=== PATIENT | male | born 1960 | race Caucasian/White ===

== ENCOUNTER 2025-06-13 08:40 | Inpatient (IN) ==
--- NOTE | 2025-06-13 09:03 | ED.PDOC ---
General HPI ED Provider: Dr. RITCHIE LOW MD Chief Complaint: Stroke Stated Complaint: Patient is a 65-year-old male that reported to the emergency department with left-sided weakness particularly in the left hand. Patient stated this started 2 hours prior to come to the emergency department. Patient stated that prior to that he had normal function in the left hand. Patient stated that he does have a history of TIAs. Patient also has a history of hypertension and current blood pressure reading is 196/103. Patient stated that he moved from [place] and has not been taking his blood pressure medications. Patient stated that there is been no change in his speech. Patient stated that has not had any loss of consciousness, dizziness, or syncope. Patient stated that he has been weak on the left lower extremity as well. Patient stated that has not had any recent falls. Patient denied any facial asymmetry. There was slight slurring of the speech appreciated at bedside. Patient denied any headache, fever, chest pain, shortness of breath, or any other acute symptoms not currently mentioned in his HPI. Patient's vital signs are currently stable. Patient's GCS is 15. Patient's NIH score is 4. Time Seen by Provider: 06/13/25 08:42 Mode of Arrival: Walk-In Information Source: Patient and Family Exam Limitations: No limitations Nursing and Triage Documentation Reviewed and Agree: Yes Opioid Naive vs. Tolerant What is Opioid Naive?: *Opioid Naive implies the patient is not already taking opioids or not chronically receiving opioids on a daily basis. *PRN dosing is not "usually" associated with tolerance. *Patients are at higher risk of over-sedation and aspiration. What is Opioid Tolerant?: *Opioid Tolerance implies less than the expected response to an opioid. *Acquired tolerance is defined by the patient taking 60mg of oral morphine daily (or equianalgesic dose of another opioid) for 1 week or more. *Often associated with chronic pain. *May take more than usual dose to achieve desired pain control. Review of Systems Review Of Systems Constitutional: Reports Weakness Neurological: Reports Weakness (Weakness in the left hand and left lower extremity.) All Other Systems: Reviewed and Negative Physical Exam Physical Exam Appearance: Reports No pain distress and Well-nourished Ill-appearing: None Pain Distress: None Eyes: Reports ASHIA, EOMI and Conjunctiva clear ENT: Reports Ears normal, Nose normal and Oropharynx normal Neck: Supple Respiratory: Reports Airway patent, Breath sounds clear, Breath sounds equal and Respirations nonlabored Cardiovascular: Reports RRR, Pulses normal, No rub and No murmur GI/: Reports Soft, Nontender, No masses, Bowel sounds normal and No Organomegaly Musculoskeletal: Reports ROM intact, Limited strength (Patient's strength in the left hand was a 3 out of 5 compared to right 5 out of 5. Patient strength in the left lower extremity was a 4 out of 5 compared to right 5 out of 5.) and Other (NIH score is 4. Patient left leg drift but does not hit bed. Aphasia is mild to moderate. Left lower limb ataxia noted. Mild to moderate dysarthria slurring but can be understood. ) Skin: Reports Warm, Dry and Normal color Neurological: Reports Sensation intact, Cranial nerves intact, Alert and Oriented Psychiatric: Reports Affect appropriate and Mood appropriate NIH Stroke Scale 1a. Level of Consciousness: 0=Alert and keenly responsive 1b. Level of Consciousness Questions: 0=Answers correctly to two questions 1c. Level of Consciousness Commands: 0=Performs two tasks correctly 2. Best Gaze: 0=Normal 3. Visual: 0=No visual loss 4. Facial Palsy: 0=Normal 5a. Motor Left Arm: 0=No drift,arm holds 90 degrees for 10 sec., leg 30 degrees for 5 sec. 5b. Motor Right Arm: 0=No drift,arm holds 90 degrees for 10 sec., leg 30 degrees for 5 sec. 6a. Motor Left Le=Drifts before 10 seconds arm, 5 seconds leg 6b. Motor Right Le=No drift,arm holds 90 degrees for 10 sec., leg 30 degrees for 5 sec. 7. Limb Ataxia: 1=Present in one limb 8. Sensory: 0=Normal 9. Best Language: 1=Mild to moderate aphasia, can express 10. Dysarthria: 1=Mild to moderate, but can be understood 11. Extincion and Inattention: 0=Normal Stroke Scale Total: 4 Mervat Coma Scale [place] Coma Scale Response Scores: Best Response = 15 Comatose Client = 8 or Less Totally Unresponsive = 3 Physician Progress Note Physician Progress Note: Patient is a 65-year-old male that reported to the emergency department with left-sided weakness particularly in the left hand. Patient stated this started 2 hours prior to come to the emergency department. Patient stated that prior to that he had normal function in the left hand. Patient stated that he does have a history of TIAs. Patient also has a history of hypertension and current blood pressure reading is 196/103. Patient stated that he moved from [place] and has not been taking his blood pressure medications. Patient stated that there is been no change in his speech. Patient stated that has not had any loss of consciousness, dizziness, or syncope. Patient stated that he has been weak on the left lower extremity as well. Patient stated that has not had any recent falls. Patient denied any facial asymmetry. There was slight slurring of the speech appreciated at bedside. Patient denied any headache, fever, chest pain, shortness of breath, or any other acute symptoms not currently mentioned in his HPI. Patient's vital signs are currently stable. Patient's GCS is 15. Patient's NIH score is 4. - Will order CT of the head without contrast to rule out bleed. - Will order CTA of the head and neck to rule out CVA as patient is within the window for tPA if needed. - Will order chest x-ray and EKG with a troponin to rule out ACS as the reasoning for patient's left-sided weakness. - Will order baseline labs and urinalysis. - CT of the head shows no acute bleed. Increased white matter noted. Extensive age indeterminate small vessel ischemic changes and atrophy. This was called in to myself by radiologist Dr. Alex Gurrola. - EKG shows normal sinus rhythm with normal axis. Ventricular rate 80 bpm. No acute STEMI. EKG interpreted by ER physician. - Chest x-ray shows no acute cardiopulmonary disease. This radiograph was interpreted by the ER physician and over read by radiology. - CBC and CMP unremarkable. - Troponins negative. Patient's EKG is normal and troponin is negative which makes ACS less likely as a reason for patient's left-sided weakness. - CTA of the head showed no high-grade stenosis or occlusion in the head. Multiple decayed and missing teeth. Recommend follow up with dental professional. - CTA of the neck showed no high-grade stenosis or occlusion in the neck. Mild bilateral internal carotid artery stenosis. - Patient stated that his motor function in his left hand has gotten better. -([id number]) I spoke to hospitalist Kishore Ureña at [facility] and she is agreed to accept this patient for TIA and medication management. I discussed all the radiographs and laboratory findings. I also discussed that the patient's current blood pressure has come down to 156/81 without medication. Again she has agreed to admit this patient for observation. - Patient has agreed to observation admission. Course Course 06/13/25 09:20 06/13/25 09:00 Orders, Labs, Meds: Lab Review 06/13/25 06/13/25 06/13/25 09:00 09:20 10:33 WBC 8.51 RBC 4.79 Hgb 14.8 Hct 45.8 MCV 95.6 H MCH 30.9 MCHC 32.3 RDW Coeff of Tolu 13.3 Plt Count 256 Immature Gran % (Auto) 0.2 Neut % (Auto) 53.5 Lymph % (Auto) 25.9 Pershing % (Auto) 9.0 Eos % (Auto) 10.6 H Baso % (Auto) 0.8 Neut # (Auto) 4.6 Lymph # (Auto) 2.2 Pershing # (Auto) 0.8 Eos # (Auto) 0.9 H Baso # (Auto) 0.1 Immature Gran # (Auto) 0.0 PT 9.9 INR 0.95 APTT 26.1 Sodium 137.9 Potassium 3.63 Chloride 102.9 Carbon Dioxide 29.8 Anion Gap 8.83 BUN 12.4 Creatinine 0.87 Estimated GFR (MDRD) 88.00 BUN/Creatinine Ratio 14.25 Glucose 115.6 H Calcium 9.02 Total Bilirubin 0.39 AST 17.5 ALT 16.7 Alkaline Phosphatase 82.6 Troponin I < 0.012 Total Protein 7.15 Albumin 3.98 Globulin 3.17 Albumin/Globulin Ratio 1.25 Urine Color Yellow Urine Clarity Clear Urine pH 6.0 Ur Specific [place] 1.020 Urine Protein Negative Urine Glucose (UA) Negative Urine Ketones Negative Urine Blood Negative Urine Nitrite Negative Urine Bilirubin Negative Urine Urobilinogen 1.0 H Ur Leukocyte Esterase Negative Orders Category Date Time Status EKG-(ED & IP/OBS ONLY) Stat CARDIO 06/13/25 09:03 Completed NPO REMINDER: IMAGING ONCE CARE 06/13/25 09:00 Completed NOTHING BY MOUTH DIETARY 06/13/25 Breakfast Ordered ED ACCUCHECK ASSESSMENT .ONCE EMERGENCY 06/13/25 09:00 Active ED MANAGER TRANSPLANT APPLIED .ONCE EMERGENCY 06/13/25 09:00 Active ED IV/MEDIPORT/POWERPORT .ONCE EMERGENCY 06/13/25 09:00 Active ED NEUROLOGICAL CHECKS Q15MIN EMERGENCY 06/13/25 09:00 Active CBC W/ AUTO DIFF Stat LAB 06/13/25 09:20 Completed COMPREHENSIVE METABOLIC PANEL Stat LAB 06/13/25 09:00 Completed PARTIAL THROMBOPLASTIN TIME Stat LAB 06/13/25 09:00 Completed PT WITH INR Stat LAB 06/13/25 09:00 Completed TROPONIN I Stat LAB 06/13/25 09:00 Completed URINALYSIS C & S IF INDICATED Stat LAB 06/13/25 10:33 Completed 0.9 % Sodium Chloride [Saline Flush] Meds 06/13/25 08:59 Active 1 syr IVF PRN PRN CHEST, 1V AP ONLY Stat RADS 06/13/25 08:[address] HEAD W/O CONTRAST Stat RADS 06/13/25 09:00 Completed CTA ANGIO HEAD Stat RADS 06/13/25 09:00 Completed CTA ANGIO NECK Stat RADS 06/13/25 09:00 Completed Medications Generic Name Dose Route Start Last Admin Trade Name Freq PRN Reason Stop Dose Admin Sodium Chloride 1 syr 06/13/25 08:59 0.9% Sodium Chloride 10 Ml Disp.Syrin IVF PRN PRN To flush IV Vital Signs: Temp Pulse Resp BP Pulse Ox 06/13/25 09:02 97.8 F 85 18 196/103 H 98 Discharge Plan Discharge Patient Disposition: PLACED OBSERVATION Discharge Problem: TIA (transient ischemic attack), Left-sided weakness, Teeth decayed, Essential hypertension Carotid artery stenosis Qualifiers: Laterality: bilateral Qualified Code(s): I65.23 - Occlusion and stenosis of bilateral carotid arteries Did you review [place] MANAGER SERVICING for ALL controlled substances?: Not Applicable ED Provider: RITCHIE LOW Condition: Stable
[2025-06-13 09:26] LABS: IMMATURE GRANULOCYTE # (AUTO) 0.0 (0.0-1.0); IMMATURE GRANULOCYTE % (AUTO) 0.2 % (0.0-5.0); RDW COEFFICIENT OF VARIATION 13.3 % (11.6-14.8)
--- NOTE | 2025-06-13 09:33 | CT ---
EXAM: CT HEAD WITHOUT CONTRAST. HISTORY: Altered level of consciousness. COMPARISON: None. TECHNIQUE: Multiple axial images of the brain were obtained from the skull base through the vertex without intravenous contrast. Multiplanar reformats were provided. FINDINGS: There is no intracranial hemorrhage or extraaxial collection. The lee-white differentiation is maintained without evidence for acute large vascular territory infarction. There are areas of periventricular and subcortical white matter low attenuation in both cerebral hemispheres including the basal ganglia/thalami and raghav. The cortical sulci and cerebral ventricles are symmetrically enlarged. The basal cisterns are well visualized. There is no hydrocephalus, mass effect, or midline shift. Mild ethmoid sinus mucosal thickening with some involvement of the inferior left frontal sinus. There may be small amount of fluid in the inferior right mastoid air cells. Otherwise, the paranasal sinuses and mastoid air cells are clear. The calvarium is intact. Atherosclerotic calcifications present. IMPRESSION: 1. No acute intracranial hemorrhage or large vascular territory infarction. 2. Extensive age indeterminate small vessel ischemic changes and atrophy. Comment: Findings were discussed with Dr. Moon by phone at 9:25 a.m. on 06/13/2025. All CT scans are performed using dose optimization techniques as appropriate to the performed exam and include at least one of the following: Automated exposure control, adjustment of the mA and/or kV according to size, and the use of iterative reconstruction technique.
[2025-06-13 09:37] LABS: CREATININE 0.87 mg/dL (0.60-1.10)
--- NOTE | 2025-06-13 09:37 | DI ---
EXAM: SINGLE VIEW CHEST HISTORY: Left-sided weakness. COMPARISON: None FINDINGS: Cardiomediastinal silhouette is unremarkable. There is no pneumothorax or effusion. There is no consolidation, nodule or mass. The osseous structures demonstrate degenerative disease of the spine and shoulders. IMPRESSION: No acute cardiopulmonary process
[2025-06-13 09:40] LABS: INR 0.95 SI (0.0-3.9)
--- NOTE | 2025-06-13 10:32 | CT ---
EXAM: HEAD CTA WITH IV CONTRAST. HISTORY: Stroke TECHNIQUE: Head CTA with IV contrast. CT dose reduction techniques performed: Yes. Coronal and sagittal reconstructions were performed. MIP/VR/3-D images were provided. COMPARISON: CT head 06/13/2025 FINDINGS: CTA head: Multiple decayed and missing teeth.Intracranial internal carotid arteries, anterior cerebral arteries, and middle cerebral arteries are within normal limits. Intracranial vertebral arteries, basilar artery, and posterior cerebral arteries are within normal limits. No aneurysm, vascular malformation, or high grade stenosis/occlusion. Impression: No high-grade stenosis or occlusion in the head. Multiple decayed and missing teeth. Recommend follow up with dental professional. All CT scans are performed using dose optimization techniques as appropriate to the performed exam and include at least one of the following: Automated exposure control, adjustment of the mA and/or kV according to size, and the use of iterative reconstruction technique.
--- NOTE | 2025-06-13 10:34 | CT ---
EXAM: NECK CTA WITHOUT AND WITH CONTRAST HISTORY: Stroke TECHNIQUE: CTA of the neck without and IV contrast administration. CT dose reduction techniques performed: Yes. Coronal and sagittal reconstructions were performed. MIP/VR/3-D images were provided. All reported proximal ICA stenoses are calculated based upon the distal ICA diameter (NASCET criteria). COMPARISON: None FINDINGS: Multiple decayed and missing teeth. Aortic arch and brachiocephalic artery are patent. Common carotid arteries are patent. Mixed plaque in the proximal right cervical internal carotid artery with 25% stenosis. Mixed plaque in the proximal left cervical internal carotid artery with 30% stenosis. Vertebral arteries are patent. No aneurysm or dissection. IMPRESSION: No high-grade stenosis or occlusion in the neck. Mild bilateral internal carotid artery stenosis. Multiple decayed and missing teeth. Recommend follow up with dental professional. All CT scans are performed using dose optimization techniques as appropriate to the performed exam and include at least one of the following: Automated exposure control, adjustment of the mA and/or kV according to size, and the use of iterative reconstruction technique.
[2025-06-13 10:43] LABS: GLUCOSE, URINE (UA) Negative (NEGATIVE); LEUKOCYTE ESTERASE ,URINE Negative (NEGATIVE); URINE, BLOOD Negative (NEGATIVE)
[2025-06-13] MEDS ORDERED: TYLENOL PO PRN (12:00)
[2025-06-13 13:54] VITALS: BMI 37.3
--- NOTE | 2025-06-13 15:11 | MRI ---
EXAMINATION: MRI BRAIN WITHOUT IV CONTRAST. History: Left-sided weakness. Technique: Multiplanar, multisequence MRI of the brain without IV contrast. Comparison: CT head 06/13/2025. Findings: A few foci of acute infarction in the right frontal region. Multiple foci of subacute infarction in the left nunes radiata and left frontal region. 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 Moderate microvascular disease and brain atrophy.No acute hemorrhage, mass lesion, or midline shift. Orbits and globes intact. Ventricles appropriate in size. Basilar cisterns clear. Flow voids demonstrated in the major intracranial vasculature. Grossly normal pituitary and sella. Normal calvarial marrow signal. Paranasal sinuses clear. Right mastoid effusion. Impression: Foci of acute infarction in the right frontal region. Foci of subacute infarction in the left nunes radiata and left frontal region. 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 Moderate microvascular disease and brain atrophy.
--- NOTE | 2025-06-13 15:40 | PCM.SS ---
Provider Provider: ILDEFONSO DE SANTIAGO, [facility] Ad[facility] Date Admission Date: 06/13/25 Discharge Date Discharge Date: 06/13/25 Primary Care Physician Primary Care Physician: RAYMOND GUTIERREZ Chief Complaint Reason For Visit: TIA, ESSENTIAL HYPERTENSION LFT SIDE WKNESS History of Present Illness History of Present Illness: Admitted 06/13/25 11:17, this 65 year old /WHITE/M [] [facility] Medical History (Updated 06/13/25 @ 15:40 by ILDEFONSO DE SANTIAGO) TIA (transient ischemic attack) G45.9 - Transient cerebral ischemic attack, unspecified (ICD-10) Essential hypertension I10 - Essential (primary) hypertension (ICD-10) Surgical History (Updated 06/13/25 @ 15:40 by ILDEFONSO DE SANTIAGO) H/O heart artery stent Z95.5 - Presence of coronary angioplasty implant and graft (ICD-10) Family History FATHER Heart disease Mother Emphysema lung Medications Mecications: Medications at Discharge (Home Meds & RX) amlodipine 10 mg tablet 10 mg PO DAILY 06/13/25 hydrochlorothiazide 12.5 mg tablet 12.5 mg PO DAILY 06/13/25 Allergies Allergies Allergy/AdvReac Type Severity Reaction Status Date / Time No Known Allergies Allergy Unverified 06/13/25 09:02 Review of Systems Constitutional: Reports No symptoms Eyes: Reports Blurred vision and Vision Changes Ears: Reports No symptoms Nose: Reports No symptoms Mouth: Reports No symptoms Throat: Reports Difficulty Swallowing Cardiovascular: Reports No symptoms Respiratory: Reports No symptoms Gastrointestinal: Reports No symptoms Genitourinary: Reports No Symptoms Musculoskeletal: Reports No symptoms Endocrine: Reports No symptoms Hematology: Reports No symptoms Immunology: Reports No symptoms Neurological: Reports Numbness, Weakness, Speech difficulty and Problems with walking Psychiatric: Reports No symptoms Physical Examination Appearance: Positive No Apparent Distress and Alert and Oriented x3 Head: Positive Normocephalic Eyes: Positive ASHIA ENT: Positive Not Examined Neck: Positive Supple, Non-Tender, Trachea Midline and No Carotid Bruits Heart: Positive RRR and No Murmurs Respiratory: Positive Airway patent, Breath Sounds Clear, Bilaterally, Breath Sounds Equal and Respirations Nonlabored GI/: Positive Soft, Nontender, Bowel sounds normal and No Distention Extremities: Positive Pedal Pulses Palpable Bilaterally; Negative Edema Neurological: Positive Sensation Intact (dull to L arm and leg), Motor Intact (slight drift to L arm and leg), Reflexes Intact, Alert, Oriented and Focal Deficit (L sided weakness) Vital Signs (Last 4 Hours) Vital Signs Last 4 Hours: Vital Signs: Last 4 Hours 06/13/25 13:35 06/13/25 13:42 06/13/25 14:00 Temperature 97.7 F Temperature Source Temporal Artery Scan Pulse Rate 75 Respiratory Rate 19 Blood Pressure Left Arm 169/98 Blood Pressure Position Supine O2 Sat by Pulse Oximetry 96 Oxygen Delivery Method Room Air Room Air Height 5 ft 8 in Weight 111.5 kg Telemetry Type Remote Telemetry Telemetry Monitoring Started Telemetry Heart Rate 83 EKG MN Interval 0.17 EKG QRS Interval 0.06 Telemetry Strip Reading NSR 06/13/25 14:26 Temperature Temperature Source Pulse Rate Respiratory Rate Blood Pressure Left Arm Blood Pressure Position O2 Sat by Pulse Oximetry Oxygen Delivery Method Room Air Height Weight Telemetry Type Telemetry Monitoring Telemetry Heart Rate EKG MN Interval EKG QRS Interval Telemetry Strip Reading Labs This Visit Labs This Visit: Labs This Visit 06/13/25 06/13/25 06/13/25 09:00 09:20 10:33 WBC 8.51 RBC 4.79 Hgb 14.8 Hct 45.8 MCV 95.6 H MCH 30.9 MCHC 32.3 RDW Coeff of Tolu 13.3 Plt Count 256 Immature Gran % (Auto) 0.2 Neut % (Auto) 53.5 Lymph % (Auto) 25.9 Coal % (Auto) 9.0 Eos % (Auto) 10.6 H Baso % (Auto) 0.8 Neut # (Auto) 4.6 Lymph # (Auto) 2.2 Coal # (Auto) 0.8 Eos # (Auto) 0.9 H Baso # (Auto) 0.1 Immature Gran # (Auto) 0.0 PT 9.9 INR 0.95 APTT 26.1 Sodium 137.9 Potassium 3.63 Chloride 102.9 Carbon Dioxide 29.8 Anion Gap 8.83 BUN 12.4 Creatinine 0.87 Estimated GFR (MDRD) 88.00 BUN/Creatinine Ratio 14.25 Glucose 115.6 H Calcium 9.02 Total Bilirubin 0.39 AST 17.5 ALT 16.7 Alkaline Phosphatase 82.6 Troponin I < 0.012 Total Protein 7.15 Albumin 3.98 Globulin 3.17 Albumin/Globulin Ratio 1.25 Urine Color Yellow Urine Clarity Clear Urine pH 6.0 Ur Specific [place] 1.020 Urine Protein Negative Urine Glucose (UA) Negative Urine Ketones Negative Urine Blood Negative Urine Nitrite Negative Urine Bilirubin Negative Urine Urobilinogen 1.0 H Ur Leukocyte Esterase Negative Imaging Imaging: EXAM: CT HEAD WITHOUT CONTRAST. HISTORY: Altered level of consciousness. COMPARISON: None. TECHNIQUE: Multiple axial images of the brain were obtained from the skull base through the vertex without intravenous contrast. Multiplanar reformats were pr ovided. FINDINGS: There is no intracranial hemorrhage or extraaxial collection. The lee-white differentiation is maintained without evidence for acute large vascular territory infarction. There are areas of periventricular and subcortical white matter low attenuation in both cerebral hemispheres including the basal ganglia/thalami and raghav. The cortical sulci and cerebral ventricles are symmetrically enlarged. The basal cisterns are well visualized. There is no hydrocephalus, mass effect, or midline shift. Mild ethmoid sinus mucosal thickening with some involvement of the inferior left frontal sinus. There may be small amount of fluid in the inferior right mastoid air cells. Otherwise, the paranasal sinuses and mastoid air cells are clear. The calvarium is intact. Atherosclerotic calcifications present. IMPRESSION: 1. No acute intracranial hemorrhage or large vascular territory infarction. 2. Extensive age indeterminate small vessel ischemic changes and atrophy. EXAM: HEAD CTA WITH IV CONTRAST. HISTORY: Stroke TECHNIQUE: Head CTA with IV contrast. CT dose reduction techniques performed: Yes. Coronal and sagittal reconstructions were performed. MIP/VR/3-D images were provided. COMPARISON: CT head 06/13/2025 FINDINGS: CTA head: Multiple decayed and missing teeth.Intracranial internal carotid arteries, anterior cerebral arteries, and middle cerebral arteries are within normal limits. Intracranial vertebral arteries, basilar artery, and posterior cerebral arteries are within normal limits. No aneurysm, vascular malformation, or high grade stenosis/occlusion. Impression: No high-grade stenosis or occlusion in the head. Multiple decayed and missing teeth. Recommend follow up with dental professional. EXAM: NECK CTA WITHOUT AND WITH CONTRAST HISTORY: Stroke TECHNIQUE: CTA of the neck without and IV contrast administration. CT dose reduction techniques performed: Yes. Coronal and sagittal reconstructions were performed. MIP/VR/3-D images were provided. All reported proximal ICA stenoses are calculated based upon the distal ICA diameter (NASCET criteria). COMPARISON: None FINDINGS: Multiple decayed and missing teeth. Aortic arch and brachiocephalic artery are patent. Common carotid arteries are patent. Mixed plaque in the proximal right cervical internal carotid artery with 25% stenosis. Mixed plaque in the proximal left cervical internal carotid artery with 30% stenosis. Vertebral arteries are patent. No aneurysm or dissection. IMPRESSION: No high-grade stenosis or occlusion in the neck. Mild bilateral internal carotid artery stenosis. Multiple decayed and missing teeth. Recommend follow up with dental professional. EXAM: SINGLE VIEW CHEST HISTORY: Left-sided weakness. COMPARISON: None FINDINGS: Cardiomediastinal silhouette is unremarkable. There is no pneumothorax or effusion. There is no consolidation, nodule or mass. The osseous structures demonstrate degenerative disease of the spine and shoulders. IMPRESSION: No acute cardiopulmonary process EXAMINATION: MRI BRAIN WITHOUT IV CONTRAST. History: Left-sided weakness. Technique: Multiplanar, multisequence MRI of the brain without IV contrast. Comparison: CT head 06/13/2025. Findings: A few foci of acute infarction in the right frontal region. Multiple foci of subacute infarction in the left nunes radiata and left frontal region. 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 Moderate microvascular disease and brain atrophy.No acute hemorrhage, mass lesion, or midline shift. Orbits and globes intact. Ventricles appropriate in size. Basilar cisterns clear. Flow voids demonstrated in the major intracranial vasculature. Grossly normal pit uitary and sella. Normal calvarial marrow signal. Paranasal sinuses clear. Right mastoid effusion. Impression: Foci of acute infarction in the right frontal region. Foci of subacute infarction in the left nunes radiata and left frontal region. 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 Moderate microvascular disease and brain atrophy. Review Review Statement: I have independently reviewed and interpreted the labs/EKGs/imaging that were ordered by the ER provider. I have reviewed all outside records that are available currently in our EMR including imaging/notes/labs from previous visits. Plan Additional Planning: Case discussed with ED Physician, []. DVT Prophylaxis: Advanced Care Planning: [] minutes spent discussing advance care planning. Smoking Cessation: 3-10 minutes spent discussing smoking cessation. Disposition: Admit to: Discussed Plan of Care with [] If patient discharged with Left Ventricular Systolic Dysfunction: Discharged with a beta hortencia? [] If no, why not? [] Discharged with an verena/arb? [] If no, why not? [] Review With Patient Reviewed with Patient and Family: Patient and family have been counseled on condition and care plan and have no immediate questions. I have personally discussed and reviewed the patient's visit/current labs/imaging/decision making with Dr. Janneth Joseph, my supervising attending. Total number of minutes spent with patient [ ] min. More than 50% of the time spent with this patient was devoted to counseling and coordination of care. Time of Admission:06/13/25 11:17 Time of Discharge: Discharge Plan Discharge Prescriptions: No Action amlodipine 10 mg tablet 10 mg PO DAILY hydrochlorothiazide 12.5 mg tablet 12.5 mg PO DAILY Condition: Stable
[2025-06-13] MEDS: PLAVIX PO SCH (17:14)
[2025-06-13] MEDS: ASPIRIN CHEWABLE PO SCH (17:15)
--- NOTE | 2025-06-13 17:17 | RS.SWEVAL ---
Subjective Date of Note: 06/13/25 Date of Evaluation: 06/13/25 Date of Onset/Injury/Change in Status: 06/13/25 Diagnosis: CVA Prior Level of Function.....Patient was independent with: ADL's and Self Care Current Level of Function: Patient is a 65 year old male that lives with his niece. He has a history of previous stroke. Current Subjective/complaints:: Patient was referred for a swallow evaluation du e to stroke diagnosis and difficulty swallowing. General Information General Patient Orientation: Person, Place, Time and Situation Ability to Follow Directions: Excellent Oral Expression Ability: Mild Impairment Oral-Facial Assessment Face Facial Symmetry: Symmetrical Dental/Labial Teeth Characteristics: Missing Lip Protrusion: Normal Lip Retraction: Droops Left (mild) Lingual Protrusion: Normal Tip Lateralization: Normal Tip Elevation: Normal Food Presentation Solids Food Presented: Pureed Behaviors/Comments: WFL- no s/s of aspiration or difficulty Food Presented: Mechanical Soft (soft sandwich) Behaviors/Comments: tolerated small bites with cues Food Presented: Regular (cracker) Behaviors/Comments: some throat clearing/coughing noted Liquids Liquid Presented: Thin Behaviors/Comments: throat clearing/cough noted both right after swallow and delayed Liquid Presented: [place] Behaviors/Comments: throat clearing observed both right after swallow and delayed Liquid Presented: Honey Behaviors/Comments: no coughing, clear voice, more controlled swallow Recommendations: Dysphagia Evaluation Dietary Recommendations: Minced and Moist and Moderately Thick - Honey Dysphagia Swallow Precautions/Strategies: Sitting Upright (90 deg), Liquids from Cup, Small Bites and Sips and Alternate Liquids/Solids Comments:: patient educated on safe swallow techniques Summary Dysphagia Evaluation Summary: Patient has mild weakness and congestion present. Diet recommendations made as safest least restrictive diet at this time. 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 Further Therapy Indicated?: Yes Rehab Potential: Good Short Term Goals Goal #1: Tolerate minced and moist diet with no s/s of aspiration/penetration. Goal to be met by: 06/20/25 Goal #2: Tolerate [place] thick liquids with no s/s of aspiration/penetration. Goal to be met by: 06/20/25 Goal #3: Tolerate thin liquids with no s/s of aspiration/penetration. Goal to be met by: 06/20/25 Goal #4: Tolerate regular diet with no s/s of aspiration/penetration. Goal to be met by: 06/20/25 Longterm Goals Goal #1: Safely tolerate least restrictive diet with no s/s of aspiration. Goal to be met by: 06/20/25 Plan Duration of Treatment: 1 Week Frequency of Treatment: 1xday Anticipated Discharge Destination: Home Treatment Code (1) Dysphagia: Code(s): R13.10 - Dysphagia, unspecified Qualifiers: Dysphagia type: oropharyngeal phase Qualified Code(s): R13.12 - Dysphagia, oropharyngeal phase
[2025-06-13] MEDS: LIPITOR PO SCH (20:02)
--- NOTE | 2025-06-13 21:03 | PCM ---
Date of Service Date Seen by Provider: 06/13/25 Time Seen by Provider: 13:45 Admit Day/Time Admission Date: 06/13/25 Admission Time: 11:00 Reason for Admission Chief Complaint: TIA, ESSENTIAL HYPERTENSION LFT [facility] Provider [facility] Provider: ILDEFONSO DE SANTIAGO, [facility] Primary Care Physician Primary Care Physician: RAYMOND GUTIERREZ History of Present Illness History of Present Illness: 65 yo male with pmh of CVA/TIA, HTN, and 1 cardiac stent presented to the ER for stroke-like symptoms. Last known well was approximately 11 pm. Patient reports going to bed and waking up around 7 am with difficulty moving his left arm/hand, worsening slurred speech, L leg weakness, decreased sensation to L side, and mild blurry vision. Reports he had a mild stroke approx. 6 months ago and had mild residual to his left leg. Today had noted soledad/posturing of the L 1st index finger and significant weakness moving his L hand. CT head in ER negative as well as CTA head/neck. NIH 4. ER provider was under impression that his symptoms were residual from his old stroke vs new. Stat MRI ordered after patient evaluated by this provider once arriving to the floor due to patient being within the 24 hour window. Found to have multiple infarctions in different areas noted below in imaging section. NIH still 4 upon my exam. Denies any chest pain but does report he had an episode yesterday that resolved. Denies any previous history of Afib that he knows of. Currently only taking BP medications. Admitted to med/surg inpatient for acute stroke. Of note, RN in room durnig exam and patient was attempting to eat a sandwich. Had a choking episode and difficulty swallowing. Made NPO until swallow screen could be completed by speech therapy. Case Discussed With Case Discussed With: Patient's case was discussed with the ER Physicians, Dr. Moon. [facility] Medical History TIA (transient ischemic attack) G45.9 - Transient cerebral ischemic attack, unspecified (ICD-10) Essential hypertension I10 - Essential (primary) hypertension (ICD-10) Surgical History H/O heart artery stent Z95.5 - Presence of coronary angioplasty implant and graft (ICD-10) Family History FATHER Heart disease Mother Emphysema lung Allergies Allergies Allergy/AdvReac Type Severity Reaction Status Date / Time No Known Allergies Allergy Unverified 06/13/25 09:02 Current Medications Home Medications Acetaminophen (Acetaminophen 325 Mg Tablet) 650 mg PO Q4H PRN PRN Reason: Mild Pain Aspirin (Aspirin 81 Mg Tab.Chew) 81 mg PO DAILYWM2 [facility] Last Admin: 06/13/25 17:15 Dose: 81 mg Atorvastatin Calcium (Atorvastatin Calcium 20 Mg Tablet) 80 mg PO BEDTIME [facility] Last Admin: 06/13/25 20:02 Dose: 80 mg Clopidogrel Bisulfate (Clopidogrel Bisulfate 75 Mg Tablet) 75 mg PO DAILY [facility] Last Admin: 06/13/25 17:14 Dose: 75 mg Sodium Chloride (0.9% Sodium Chloride 10 Ml Disp.Syrin) 1 syr IVF PRN PRN PRN Reason: To flush IV amlodipine 10 mg tablet 10 mg PO DAILY 06/13/25 [History Confirmed 06/13/25] hydrochlorothiazide 12.5 mg tablet 12.5 mg PO DAILY 06/13/25 [History Confirmed 06/13/25] Opioid Naive vs. Tolerant Does Patient Take Opioids?: No Is Patient Opioid Naive?: Yes What is Opioid Naive?: *Opioid Naive implies the patient is not already taking opioids or not chronically receiving opioids on a daily basis. *PRN dosing is not "usually" associated with tolerance. *Patients are at higher risk of over-sedation and aspiration. Is Patient Opioid Tolerant?: No What is Opioid Tolerant?: *Opioid Tolerance implies less than the expected response to an opioid. *Acquired tolerance is defined by the patient taking 60mg of oral morphine daily (or equianalgesic dose of another opioid) for 1 week or more. *Often associated with chronic pain. *May take more than usual dose to achieve desired pain control. Review of Systems Constitutional: Reports No symptoms Eyes: Reports Blurred vision; Denies Vision Changes Ears: Reports No symptoms Nose: Reports No symptoms Mouth: Reports No symptoms Throat: Reports Difficulty Swallowing Cardiovascular: Reports No symptoms Respiratory: Reports No symptoms Gastrointestinal: Reports No symptoms Genitourinary: Reports No Symptoms Musculoskeletal: Reports No symptoms Endocrine: Reports No symptoms Hematology: Reports No symptoms Immunology: Reports No symptoms Neurological: Reports Numbness (L arm and leg), Weakness (L arm and leg), Speech difficulty and Problems with walking (L leg) Physical examination Most Recent Vital Signs: Most Recent Vital Signs Temperature 97.6 F 06/13/25 20:57 Temperature Source Temporal Artery Scan 06/13/25 20:57 Temperature Source Temporal Artery Scan 06/13/25 09:02 Pulse Rate 83 06/13/25 20:57 Respiratory Rate 20 06/13/25 20:57 Blood Pressure 141/70 H 06/13/25 20:57 Blood Pressure Mean 93 06/13/25 20:57 Blood Pressure Left Arm 169/98 06/13/25 13:35 Blood Pressure Location Left Arm 06/13/25 20:57 Blood Pressure Position Supine 06/13/25 20:57 O2 Sat by Pulse Oximetry 96 06/13/25 20:57 Oxygen Delivery Method Nasal Cannula 06/13/25 20:57 Height 5 ft 8 in 06/13/25 13:35 Weight 111.5 kg 06/13/25 13:35 Telemetry Type Remote Telemetry 06/13/25 19:00 Telemetry Monitoring Continues 06/13/25 19:00 Irregular Telemetry Rate (Approximate) 80-90 BPM 06/13/25 19:00 Telemetry Heart Rate 83 06/13/25 19:00 EKG NM Interval 0.17 06/13/25 19:00 EKG QRS Interval 0.05 L 06/13/25 19:00 Telemetry Strip Reading SR 06/13/25 19:00 Appearance: Positive No Apparent Distress and Alert and Oriented x3 Skin: Positive Warm and Good Color HEENT: Positive Normocephalic and PERRLA Neck: Positive Supple and Midline Trachea Chest/Lungs: Positive Symmetrical With Equal Breath Sounds, Clear to Auscultation Bilaterally and Good Air Movement all 4 Lung Rodriguez Heart: Positive RRR and Pulses Normal GI/: Positive Soft, Nontender, Bowel Sounds Normal and No Distention Musculoskeletal: Positive Not Examined Extremities: Positive Intact Peripheral Pulses and Stable Joints Without Laxity; Negative Edema or Good ROM in All Joints Neurological: Positive Sensation Intact (decreased to L arm and leg), Motor intact, Reflexes Intact, Alert, Oriented and Focal Deficit (L arm and leg weakness, slurred speech, NIH 4) Labs This Visit Labs This Visit: Labs This Visit 06/13/25 06/13/25 06/13/25 09:00 09:20 10:33 WBC 8.51 RBC 4.79 Hgb 14.8 Hct 45.8 MCV 95.6 H MCH 30.9 MCHC 32.3 RDW Coeff of Tolu 13.3 Plt Count 256 Immature Gran % (Auto) 0.2 Neut % (Auto) 53.5 Lymph % (Auto) 25.9 Lamb % (Auto) 9.0 Eos % (Auto) 10.6 H Baso % (Auto) 0.8 Neut # (Auto) 4.6 Lymph # (Auto) 2.2 Lamb # (Auto) 0.8 Eos # (Auto) 0.9 H Baso # (Auto) 0.1 Immature Gran # (Auto) 0.0 PT 9.9 INR 0.95 APTT 26.1 Sodium 137.9 Potassium 3.63 Chloride 102.9 Carbon Dioxide 29.8 Anion Gap 8.83 BUN 12.4 Creatinine 0.87 Estimated GFR (MDRD) 88.00 BUN/Creatinine Ratio 14.25 Glucose 115.6 H Calcium 9.02 Total Bilirubin 0.39 AST 17.5 ALT 16.7 Alkaline Phosphatase 82.6 Troponin I < 0.012 Total Protein 7.15 Albumin 3.98 Globulin 3.17 Albumin/Globulin Ratio 1.25 Urine Color Yellow Urine Clarity Clear Urine pH 6.0 Ur Specific Hewitt 1.020 Urine Protein Negative Urine Glucose (UA) Negative Urine Ketones Negative Urine Blood Negative Urine Nitrite Negative Urine Bilirubin Negative Urine Urobilinogen 1.0 H Ur Leukocyte Esterase Negative Imaging Imaging: EXAM: CT HEAD WITHOUT CONTRAST. HISTORY: Altered level of consciousness. COMPARISON: None. TECHNIQUE: Multiple axial images of the brain were obtained from the skull base through the vertex without intravenous contrast. Multiplanar reformats were provided. FINDINGS: There is no intracranial hemorrhage or extraaxial collection. The lee-white differentiation is maintained without evidence for acute large vascular territory infarction. There are areas of periventricular and subcortical white matter low attenuation in both cerebral hemispheres including the basal ganglia/thalami and raghav. The cortical sulci and cerebral ventricles are symmetrically enlarged. The basal cisterns are well visualized. There is no hydrocephalus, mass effect, or midline shift. Mild ethmoid sinus mucosal thickening with some involvement of the inferior left frontal sinus. There may be small amount of fluid in the inferior right mastoid air cells. Otherwise, the paranasal sinuses and mastoid air cells are clear. The calvarium is intact. Atherosclerotic calcifications present. IMPRESSION: 1. No acute intracranial hemorrhage or large vascular territory infarction. 2. Extensive age indeterminate small vessel ischemic changes and atrophy. EXAM: HEAD CTA WITH IV CONTRAST. HISTORY: Stroke TECHNIQUE: Head CTA with IV contrast. CT dose reduction techniques performed: Yes. Coronal and sagittal reconstructions were performed. MIP/VR/3-D images were provided. COMPARISON: CT head 06/13/2025 FINDINGS: CTA head: Multiple decayed and missing teeth.Intracranial internal carotid arteries, anterior cerebral arteries, and middle cerebral arteries are within normal limits. Intracranial vertebral arteries, basilar artery, and posterior cerebral arteries are within normal limits. No aneurysm, vascular malformation, or high grade stenosis/occlusion. Impression: No high-grade stenosis or occlusion in the head. Multiple decayed and missing teeth. Recommend follow up with dental professional. EXAM: NECK CTA WITHOUT AND WITH CONTRAST HISTORY: Stroke TECHNIQUE: CTA of the neck without and IV contrast administration. CT dose reduction techniques performed: Yes. Coronal and sagittal reconstructions were performed. MIP/VR/3-D images were provided. All reported proximal ICA stenoses are calculated based upon the distal ICA diameter (NASCET criteria). COMPARISON: None FINDINGS: Multiple decayed and missing teeth. Aortic arch and brachiocephalic artery are patent. Common carotid arteries are patent. Mixed plaque in the proximal right cervical internal carotid artery with 25% stenosis. Mixed plaque in the proximal left cervical internal carotid artery with 30% stenosis. Vertebral arteries are patent. No aneurysm or dissection. IMPRESSION: No high-grade stenosis or occlusion in the neck. Mild bilateral internal carotid artery stenosis. Multiple decayed and missing teeth. Recommend follow up with dental prof essional. EXAMINATION: MRI BRAIN WITHOUT IV CONTRAST. History: Left-sided weakness. Technique: Multiplanar, multisequence MRI of the brain without IV contrast. Comparison: CT head 06/13/2025. Findings: A few foci of acute infarction in the right frontal region. Multiple foci of subacute infarction in the left nunes radiata and left frontal region. 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 Moderate microvascular disease and brain atrophy.No acute hemorrhage, mass lesion, or midline shift. Orbits and globes intact. Ventricles appropriate in size. Basilar cisterns clear. Flow voids demonstrated in the major intracranial vasculature. Grossly normal pituitary and sella. Normal calvarial marrow signal. Paranasal sinuses clear. Right mastoid effusion. Impression: Foci of acute infarction in the right frontal region. Foci of subacute infarction in the left nunes radiata and left frontal region. 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 Moderate microvascular disease and brain atrophy. Review Statement Review Statement: I have independently reviewed and interpreted the labs/EKGs/imaging that were ordered by the ER provider. I have reviewed all outside records that are available currently in our EMR including imaging/notes/labs from previous visits. Assessment (1) Dysphagia: Status: Acute Code(s): R13.10 - Dysphagia, unspecified SNOMED Code(s): 64566111 Plan Plan: 1. Acute CVA to right frontal, left nunes radiata, left frontal, raghav, and bilateral thalami - echo ordered, start ASA, plavix, and statin, Lipid panel ordered for am, will need holter monitor upon discharge, telemetry, neurochecks Q4H, allow for permissive htn for first 24 hours, holding antihypertensives, PT/OT 2. Dysphagia d/t acute stroke - ST, diet per recommendations of speech eval 3. HTN - see #1 DVT Prophylaxis: ASA, Plavix Time Spent: Greater than 80 minutes spent with patient, 50% of the time spent with this patient was devoted to counseling and coordination of care. Advanced [facility] Plannin minutes spent discussing advance care planning. Disposition: Spoke extensively with Dr. Guido, neurologist at [facility]. Reports patient is not candidate for mechanical thrombectomy or thrombolytic due to being out of 4.5 hour window. Recommended echo and/or cardiac mri depending on findings of echo, holter monitor, lipid panel, intense acute rehab post-stroke. Patient would likely benefit from further skilled therapy due to this acute stroke. Resides at home alone. Admit to: Med/Surg Inpatient Full Code Discussed Plan of Care with Dr. Joseph. Medications Medication Orders: Medications Ordered Category Date Time Status 0.9 % Sodium Chloride [Saline Flush] Meds 06/13/25 08:59 Active 1 syr IVF PRN PRN Acetaminophen [Tylenol] Meds 06/13/25 12:00 Active 650 mg PO Q4H PRN Aspirin [Aspirin Chewable] Meds 06/13/25 16:30 Active 81 mg PO DAILYWM2 Atorvastatin Calcium [Lipitor] Meds 06/13/25 21:00 Active 80 mg PO BEDTIME Clopidogrel Bisulfate [Plavix] Meds 06/13/25 16:05 Active 75 mg PO DAILY
[2025-06-14 05:38] LABS: IMMATURE GRANULOCYTE # (AUTO) 0.0 (0.0-1.0); IMMATURE GRANULOCYTE % (AUTO) 0.2 % (0.0-5.0); RDW COEFFICIENT OF VARIATION 13.4 % (11.6-14.8)
[2025-06-14 05:55] LABS: CHOL/HDL RATIO 3.4 (4.5-6.4); CREATININE 0.89 mg/dL (0.60-1.10); VLDL CHOLESTEROL 14.0 mg/dL (2-30)
--- NOTE | 2025-06-14 11:38 | RS.PTINEVL ---
Subjective Patient information Date of Evaluation: 06/14/25 Date of Arrival on Unit: 06/13/25 Admitted From:: Home Diagnosis: CVA, impaired balance, gait difficulty Usual Living Arrangement: With Niece Living Arrangement Comments: Lives at home with niece Medical History: Hypertension, CVA/TIA and Arthritis LATEX ALLERGY?: No Surgical History Comments:: coronary stent Medications: see chart Subjective Information/ Patient Comments:: pt states that he lives with his niece. Reports that he was independent with amb without AD as well as independent with ADL's. pt reports that he has been taking himself to the bathroom even though we have asked him to call for his safety. pt states "I have been doing it and I haven't fallen." Level of function Prior to this admission, the patient could do the following:: Independent Selfcare, Independent ADL's and Independent Ambulation Current Level of Function: Partially Dependent Current Equipment Used at Home: None Interventions Objective Patient Orientation: Person and Place Current Interventions: IV's and Telemetry Observation: pt with non pitting edema BLE Range of Motion ROM Right Upper Extremity AROM: WFL's Left Upper Extremity AROM: WFL's Right Lower Extremity AROM: WFL's Left Lower Extremity AROM: WFL's Muscle Strength Muscle Strength Right Upper Extremity: Mild Weakness (grossly 4+/5 ) Left Upper Extremity: Mild Weakness (4-/5, 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) Right Lower Extremity: Mild Weakness (hip flex 4/5, knee flex/ext 4+/5, ankle DF/PF 4+/5) Left Lower Extremity: Mild Weakness (hip flex 4-/5, knee flex 4-/5, ext 4/5, ankle DF 3+/5, PF 4-/5) Sensation Sensation Right Upper Extremity: Intact/Normal Left Upper Extremity: Impaired Right Lower Extremity: Intact/Normal Left Lower Extremity: Impaired Comments: pt with decreased sensation LUE and LLE Palpation Palpation Findings: None/Normal Balance Sitting Balance and Reactions Static Sitting Balance: Good Dynamic Sitting Balance: Fair (fair+) Standing Balance and Reactions Static Standing Balance: Fair (fair-) Dynamic Standing Balance: Poor Comments Balance Assessment Comments: tinetti balance score: 14/28 consistent with high fall risk. Functional Mobility Bed Mobility Rolling R/L: Not Tested Comments:: pt seen sitting up in chair Transfers Sit to Stand: CGA Stand to Sit: CGA Stand Pivot Transfers: CGA Safety Awareness Safety Awareness: Fair ZORAIDA INDEX SCORE: n/a Ambulation Ambulation Assistive Device Used: Rolling Walker Orthotic/Prosthetic Device: No Distance: 100ft without AD, 70ft with rwx Assistance needed with Ambulation: CGA Quality of Ambulation: pt amb without AD with increased lat sway, decreased step length, pt does not clear L foot each step. pt amb with rwx with improved step length and decreased lat sway. Gait Deviations: Wide Based gait, Shuffling gait, Forward posture, Short stride and Deviates from path Factors Affecting Ambulation: Decreased Balance, Weakness, Decreased Coordination, Decreased Safety, Limited Endurance and Limited Sensation Treatment time Units charged Gait trainin Time with patient Length of Evaluation: 19 Total treatment time: 29 Patient Education Education Patient Education: Activity Modification and Education of Plan of Care Teaching Recipient: Patient Teaching Methods: Discussion Comments: discussion regarding POC. Also reinforced to pt to use call light and not get up on his own due to risk of fall. Assessment Assessment Problem List:: Decreased level of function, Requires training/education, Decreased safety/Risk of falls, Weakness and Cognitive status limits abilities Rehab Potential: Good Further Therapy Indicated?: Yes Candidate for Swing Bed for Therapy Services?: pt could benefit from swing bed for therapy for strengthening, gait safety. Evaluation Complexity: HISTORY: Medium, EXAM OF BODY SYSTEMS: Medium, CLINICAL PRESENTATION: Medium and CLINICAL DECISION MAKING: Medium Patient's Goal(s): Go home Short Term Goals GOAL #1: pt transfer sup to/from sit SBA Goal to be met by: 06/17/25 GOAL #2: Transfer sit to/from stand SBA Goal to be met by: 06/17/25 GOAL #3: pt amb with rwx 140ft with CGA no LOB and improved gait sequencing Goal to be met by: 06/17/25 GOAL #4: Improve tinetti score 16/28 Goal to be met by: 06/17/25 GOAL #5: Improve LLE strength to 4- to 4/5 Goal to be met by: 06/18/25 Halfway Goals GOAL #1: pt transfer sup to/from sit to/from stand SBA to independent Goal to be met by: 06/19/25 GOAL #2: pt amb with AAD functional household distances with SBA Goal to be met by: 06/19/25 GOAL #3: pt ascend/descend 2-3 steps w HR CGA Goal to be met by: 06/19/25 Plan Plan of Care: Therapeutic EX and Therapeutic Activity Other:: gait training Frequency of Treatment: 1-2 X day, as tolerated Duration of Treatment: 5 days Anticipated Discharge Destination: undetermined Treatment Diagnosis (ICD 10 Codes): CVA w L side weakness impaired balance R26.81 gait abnormality R26.2 fall risk Z91.81 Has the Physician been added for Co-signature?: Yes
--- NOTE | 2025-06-14 11:59 | PCM.PROG ---
Date/Time Seen Date Seen by Provider: 06/14/25 Time Seen by Provider: 09:25 Provider Provider: DARLENE CARDOSO, [facility] Chief Complaint Chief Complaint: TIA, ESSENTIAL HYPERTENSION LFT SIDE WKNESS Subjective Subjective: Patient resting in bed on exam today. Patient reports that he doesnt like his thickened liquids. I explained that due to his swallowing issues he will need to continue working with ST until hes having improvement. ST notified. Patient still having noted upper and lower extremity deficits but no worsening symptoms. Patient still having issues with mobility and adls. spoke with patient regarding swingbed and hes agreeable. Patient has no other complaints otherwise. Patient denies SOB, chest pain, abdominal pain. I did speak with patient regarding smoking cessation but hes not interested at this time. Objective Appearance: Positive Well-appearing, Well-nourished, No Apparent Distress and Alert and Oriented x3; Negative Ill-Appearing Chest/Lungs: Positive Symmetrical With Equal Breath Sounds Heart: Positive RRR and Pulses Normal; Negative Rub, Murmur, Irregular Rhythm, Tachycardia, Bracycardia, Abnormal Pulses, Gallop, No S3 Auscultated or No S4 Auscultated GI/: Positive Soft, Nontender, Bowel Sounds Normal, No Distention and No Organomegaly; Negative Tender, Mass, Bowel Sounds Hypoactive, Bowel Sounds Hyperactive, Hepatomegaly, Splenomegaly, Guarding, Hernias, Rigidity, Rebound Tenderness or Abdominal Aorta Not Palpable Musculoskeletal: Positive Instability (Patient ambulates but not at baseline, still unsteady. ); Negative Crepitation, Defects, Tenderness, Masses, Effusions or Decreased ROM Neurological: Positive Sensation Intact; Negative Motor intact (Patient having continued focal weakness to left upper and left lower extremity.) Vital Signs Vital Signs: Vital Signs: Last 24 Hours 06/13/25 13:35 06/13/25 13:42 06/13/25 14:00 Temperature 97.7 F Temperature Source Temporal Artery Scan Pulse Rate 75 Respiratory Rate 19 Blood Pressure Blood Pressure Mean Blood Pressure Left Arm 169/98 Blood Pressure Location Blood Pressure Position Supine O2 Sat by Pulse Oximetry 96 Oxygen Delivery Method Room Air Room Air Height 5 ft 8 in Weight 111.5 kg Telemetry Type Remote Telemetry Telemetry Monitoring Started Irregular Telemetry Rate (Approximate) Telemetry Heart Rate 83 EKG IA Interval 0.17 EKG QRS Interval 0.06 Telemetry Strip Reading NSR 06/13/25 14:26 06/13/25 17:44 06/13/25 19:00 Temperature 98.3 F Temperature Source Temporal Artery Scan Pulse Rate 76 Respiratory Rate 16 Blood Pressure 172/95 H Blood Pressure Mean 120 Blood Pressure Left Arm Blood Pressure Location Left Arm Blood Pressure Position Sitting O2 Sat by Pulse Oximetry 95 Oxygen Delivery Method Room Air Room Air Height Weight Telemetry Type Remote Telemetry Telemetry Monitoring Continues Irregular Telemetry Rate (Approximate) 80-90 BPM Telemetry Heart Rate 83 EKG IA Interval 0.17 EKG QRS Interval 0.05 L Telemetry Strip Reading 06/13/25 20:00 06/13/25 20:57 06/14/25 01:00 Temperature 97.6 F Temperature Source Temporal Artery Scan Pulse Rate 83 Respiratory Rate 20 Blood Pressure 141/70 H Blood Pressure Mean 93 Blood Pressure Left Arm Blood Pressure Location Left Arm Blood Pressure Position Supine O2 Sat by Pulse Oximetry 96 Oxygen Delivery Method Room Air Nasal Cannula Height Weight Telemetry Type Remote Telemetry Telemetry Monitoring Continues Irregular Telemetry Rate (Approximate) Telemetry Heart Rate 69 EKG IA Interval 0.17 EKG QRS Interval 0.07 Telemetry Strip Reading 06/14/25 01:21 06/14/25 05:07 06/14/25 07:00 Temperature 97.6 F 97.9 F Temperature Source Temporal Artery Scan Temporal Artery Scan Pulse Rate 70 71 Respiratory Rate 22 H 18 Blood Pressure 122/63 147/72 H Blood Pressure Mean 82 97 Blood Pressure Left Arm Blood Pressure Location Right Arm Blood Pressure Position Supine Supine O2 Sat by Pulse Oximetry 94 L 95 Oxygen Delivery Method Room Air Room Air Height Weight Telemetry Type Remote Telemetry Telemetry Monitoring Continues Irregular Telemetry Rate (Approximate) Telemetry Heart Rate 70 EKG IA Interval 0.14 EKG QRS Interval 0.07 Telemetry Strip Reading [facility] 06/14/25 10:00 Temperature 97.5 F L Temperature Source Temporal Artery Scan Pulse Rate 75 Respiratory Rate 20 Blood Pressure 159/89 H Blood Pressure Mean 112 Blood Pressure Left Arm Blood Pressure Location Left Arm Blood Pressure Position Sitting O2 Sat by Pulse Oximetry 95 Oxygen Delivery Method Room Air Height Weight Telemetry Type Telemetry Monitoring Irregular Telemetry Rate (Approximate) Telemetry Heart Rate EKG IA Interval EKG QRS Interval Telemetry Strip Reading Lab Results Lab Results: Lab Results: Last 24 Hours 06/14/25 05:10 WBC 9.01 RBC 4.81 Hgb 14.6 Hct 45.8 MCV 95.2 H MCH 30.4 MCHC 31.9 RDW Coeff of Tolu 13.4 Plt Count 257 Immature Gran % (Auto) 0.2 Neut % (Auto) 53.0 Lymph % (Auto) 28.5 [place] % (Auto) 7.4 Eos % (Auto) 10.0 H Baso % (Auto) 0.9 Neut # (Auto) 4.8 Lymph # (Auto) 2.6 [place] # (Auto) 0.7 Eos # (Auto) 0.9 H Baso # (Auto) 0.1 Immature Gran # (Auto) 0.0 Sodium 136.4 Potassium 3.75 Chloride 101.8 Carbon Dioxide 27.7 Anion Gap 10.65 BUN 12.6 Creatinine 0.89 Estimated GFR (MDRD) 86.00 BUN/Creatinine Ratio 14.15 Glucose 95.6 Calcium 8.80 Total Bilirubin 0.66 AST 21.2 ALT 16.1 Alkaline Phosphatase 83.6 Total Protein 6.74 Albumin 3.78 Globulin 2.96 Albumin/Globulin Ratio 1.27 Triglycerides 72.2 Cholesterol 164.7 LDL Cholesterol, Calc 102 VLDL Cholesterol 14 HDL Cholesterol 48.5 Cholesterol/HDL Ratio 3.4 L Additional Comments Additional Comments: I have independently reviewed and interpreted the labs/EKGs/imaging ordered during this hospital stay. I have reviewed outside records that are available in our EMR that pertain to medical stay including imaging/notes/labs from previous visits. Active Medications Active Medications: Medications Generic Name Dose Route Start Last Admin Trade Name Freq PRN Reason Stop Dose Admin Acetaminophen 650 mg 06/13/25 12:00 Acetaminophen 325 Mg Tablet PO Q4H PRN Mild Pain Aspirin 81 mg 06/13/25 16:30 06/14/25 07:45 Aspirin 81 Mg Tab.Chew PO 81 mg DAILYWM2 [facility] Administration Atorvastatin Calcium 80 mg 06/13/25 21:00 06/13/25 20:02 Atorvastatin Calcium 20 Mg Tablet PO 80 mg BEDTIME [facility] Administration Clopidogrel Bisulfate 75 mg 06/13/25 16:05 06/14/25 08:04 Clopidogrel Bisulfate 75 Mg Tablet PO 75 mg DAILY [facility]IN Administration Sodium Chloride 1 syr 06/13/25 08:59 0.9% Sodium Chloride 10 Ml Disp.Syrin IVF PRN PRN To flush IV Assessment (1) Dysphagia: Status: Acute Code(s): R13.10 - Dysphagia, unspecified SNOMED Code(s): 03642905 Plan Plan: 1. 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 BP currently 159/89 -holding antihypertensives -PT/OT to evaluate patient today. -Will assess for possible swingbed. Case management following 2. Dysphagia d/t acute stroke: -ST, diet per recommendations of speech eval -Patient advised on the importance of dietary adherence 3. Essential hypertension: -Hold for permissive hypertension 4. Tobacco abuse: -Patient not interested in smoking cessation at this time -Will need continued follow up with PCP after discharge. DVT Prophylaxis: ASA, Plavix Time Spent: Greater than 80 minutes spent with patient, 50% of the time spent with this patient was devoted to counseling and coordination of care. [facility] minutes spent discussing advance care planning. Disposition: Kishore DAMON initially spoke with Dr. Guido, neurologist at [facility]. Reports patient is not candidate for mechanical thrombectomy or thrombolytic due to being out of 4.5 hour window. Recommended echo and/or cardiac mri depending on findings of echo, holter monitor, lipid panel, intense acute rehab post-stroke. Patient would likely benefit from further skilled therapy due to this acute stroke. Resides at home alone. Case management following for possible swingbed. Admit to: Med/Surg Inpatient Full Code Discussed Plan of Care with Dr. Joseph. Foci of acute infarction in the right frontal region. Foci of subacute infarction in the left nunes radiata and left frontal region. 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 Moderate microvascular disease and brain atrophy. Review Statement Review Statement: I have personally discussed and reviewed the patient's visit/currently labs/imaging/decision making with Dr. Joseph, my supervising attending. Greater that 50 minutes spent with patient, 50% of the time spent with this patient was devoted to counseling and coordination of care.
--- NOTE | 2025-06-14 13:29 | DI ---
EXAM: CHEST FRONTAL AND LATERAL VIEWS HISTORY: Concern for aspiration COMPARISON: 06/13/2025 FINDINGS: Heart size and mediastinal contour remain within normal limits. No acute infiltrates. Normal vascularity with no pleural fluid or pneumothorax. No suspicious pulmonary opacities or nodules. The bony thorax has no acute finding. IMPRESSION: No acute cardiopulmonary process.
--- NOTE | 2025-06-14 14:19 | DCSUM ---
Admission Date Admission Date: 06/13/25 Discharge Date Discharge Date: 06/14/25 Admission Diagnosis Admission Diagnosis: CVA Discharge Diagnosis Discharge Diagnosis: CVA Weakness and debility Hospital Provider Hospital Provider: [facility] Primary Care Physician Primary Care Physician: RAYMOND GUTIERREZ Summary of History and Physical Summary of History and Physical: Patient arrived to ED initially with stroke like symptoms. Patient reports that he woke up yesterday morning with left arm/hand, worsening slurred speech, L leg weakness, decreased sensation to L side, and mild blurry vision. Initial workup in the emergency department benign. Patient admitted for further evaluation and treatment. At time of admission vitals stable and patient in no distress. Hospital Course Subjective: Throughout admission patient had steady NIH. Patient was evaluated by therapy PT/OT/ST. Patient was deemed a aspiration risk after ST eval. PAtient placed on thickened liquids though he did not tolerate well. Patient was ambulating to b athroom during stay though dragging LLE. MRI of brain revealed multiple area of infarction. Case management was consulted and did speak with the patient regarding need for therapy and possible swingbed vs. placement. Patient declined swingbed or placement. Patient requesting to leave AMA. PAtient reports that he doesnt want to adhere to ST recommendations. Reports that he has to smoke. Reports that he can do the same therapy at home. Myself and staff did speak with him regarding his current condition, need for therapy recommendations, as well as risk of nonadherance to current treatment and recommendations. Patient verbalized understanding of education but still leaving AMA. Appearance: No Apparent Distress, Alert and Well-nourished HEENT: MMM, Supple and No JVD CVS: No Murmur, No Rubs, No Gallop and No JVD Abdomen: Soft, Non-Tender and No Distention Respiratory: No Dyspnea Extremities: No Edema Vital Signs: Most Recent Vital Signs Temperature 97.5 F L 06/14/25 10:00 Temperature Source Temporal Artery Scan 06/14/25 10:00 Temperature Source Temporal Artery Scan 06/13/25 09:02 Pulse Rate 75 06/14/25 10:00 Respiratory Rate 20 06/14/25 10:00 Blood Pressure 159/89 H 06/14/25 10:00 Blood Pressure Mean 112 06/14/25 10:00 Blood Pressure Left Arm 169/98 06/13/25 13:35 Blood Pressure Location Left Arm 06/14/25 10:00 Blood Pressure Position Sitting 06/14/25 10:00 O2 Sat by Pulse Oximetry 95 06/14/25 10:00 Oxygen Delivery Method Room Air 06/14/25 10:00 Height 5 ft 8 in 06/13/25 13:35 Weight 111.5 kg 06/13/25 13:35 Telemetry Type Remote Telemetry 06/14/25 07:00 Telemetry Monitoring Continues 06/14/25 07:00 Irregular Telemetry Rate (Approximate) 80-90 BPM 06/13/25 19:00 Telemetry Heart Rate 70 06/14/25 07:00 EKG ND Interval 0.14 06/14/25 07:00 EKG QRS Interval 0.07 06/14/25 07:00 Telemetry Strip Reading NSR 06/14/25 07:00 Lab Results Last 24 Hours: 06/14/25 05:10 WBC 9.01 RBC 4.81 Hgb 14.6 Hct 45.8 MCV 95.2 H MCH 30.4 MCHC 31.9 RDW Coeff of Tolu 13.4 Plt Count 257 Immature Gran % (Auto) 0.2 Neut % (Auto) 53.0 Lymph % (Auto) 28.5 [place] % (Auto) 7.4 Eos % (Auto) 10.0 H Baso % (Auto) 0.9 Neut # (Auto) 4.8 Lymph # (Auto) 2.6 [place] # (Auto) 0.7 Eos # (Auto) 0.9 H Baso # (Auto) 0.1 Immature Gran # (Auto) 0.0 Sodium 136.4 Potassium 3.75 Chloride 101.8 Carbon Dioxide 27.7 Anion Gap 10.65 BUN 12.6 Creatinine 0.89 Estimated GFR (MDRD) 86.00 BUN/Creatinine Ratio 14.15 Glucose 95.6 Calcium 8.80 Total Bilirubin 0.66 AST 21.2 ALT 16.1 Alkaline Phosphatase 83.6 Total Protein 6.74 Albumin 3.78 Globulin 2.96 Albumin/Globulin Ratio 1.27 Triglycerides 72.2 Cholesterol 164.7 LDL Cholesterol, Calc 102 VLDL Cholesterol 14 HDL Cholesterol 48.5 Cholesterol/HDL Ratio 3.4 L Discharge Instructions Discharge Planning: Discharge Planning > 40 minutes If patient is discharged with left ventricular systolic dysfunction: Discharged with a beta hortencia? [] If no, why not? [not indicated] Discharged with an verena/arb? [] If no, why not? [] Discharge Medications: Home Medications Acetaminophen (Acetaminophen 325 Mg Tablet) 650 mg PO Q4H PRN PRN Reason: Mild Pain Aspirin (Aspirin 81 Mg Tab.Chew) 81 mg PO DAILYWM2 [facility] Last Admin: 06/14/25 07:45 Dose: 81 mg Atorvastatin Calcium (Atorvastatin Calcium 20 Mg Tablet) 80 mg PO BEDTIME [facility] Last Admin: 06/13/25 20:02 Dose: 80 mg Clopidogrel Bisulfate (Clopidogrel Bisulfate 75 Mg Tablet) 75 mg PO DAILY [facility] Last Admin: 06/14/25 08:04 Dose: 75 mg Sodium Chloride (0.9% Sodium Chloride 10 Ml Disp.Syrin) 1 syr IVF PRN PRN PRN Reason: To flush IV Discharge Plan Discharge Discharge Orders: Discharge Patient (ONCE); Ordered 06/14/25 Ordered By: KORY SUAZO Activity Restrictions/Additional Instructions: You have been referred to [facility]. They will be in contact with you to initiate care. If you have any questions or need to speak with them, their contact number is [phone]. Instructions: Amlodipine (By mouth), Transient Ischemic Attack (DC), Against Medical Advice (DC), Dysphagia (GEN) Patient Disposition: AMA Prescriptions: New aspirin 81 mg Tablet,Chewable 81 mg PO DAILYWM2 Qty: 30 0RF atorvastatin [Lipitor] 80 mg tablet 80 mg PO BEDTIME Qty: 30 0RF clopidogrel [Plavix] 75 mg Tablet 75 mg PO DAILY Qty: 30 0RF Continued amlodipine 10 mg tablet 10 mg PO DAILY hydrochlorothiazide 12.5 mg tablet 12.5 mg PO DAILY Did you review [place] [employer] for ALL controlled substances?: Yes Discussed opioids are addictive and Narcan is available by prescription or from pharmacy.: Yes Condition: Stable Referrals: RAYMOND GUTIERREZ [Primary Care Provider, [facility] [employer] [facility]] - 5-7 Days Referral Note: PLEASE CONTACT YOUR PROVIDER TO SCHEDULE AN APPOINTMENT. WE WERE UNABLE TO THEIR OFFICE WAS CLOSED.
[2025-06-14 14:42] VITALS: BP 179/99; PULSE 74; RESP 18; TEMP 98.2
--- NOTE | 2025-06-17 08:19 | RS.OTINEVL ---
Subjective Patient information Date of Evaluation: 06/14/25 Date of Arrival on Unit: 06/13/25 Admitted From:: Home Diagnosis: CVA, PRECAUTIONS: Fall risk, Drags LLE Usual Living Arrangement: With Others Living Arrangement Comments: Lives at home with niece and her boyfriend. Medical History: Hypertension and CVA/TIA Medical History Comments:: TIA, CVA, Subjective Information/ Patient Comments:: Pt reports his Left hand does not feel normal. Level of function Prior to this admission, the patient could do the following:: Independent Selfcare, Independent ADL's and Independent Ambulation Abilities prior to this admission: Pt did not use an AD, and was Independent with toileting and ADLs. Current Level of Function: Partially Dependent Comments: Pt has impaired LUE sensation, and weakness. Pt drags LLE when walking. Current Equipment Used at Home: None Pain Assessment Pain Pain Score: 0 Interventions Objective Patient Orientation: Person and Situation Current Interventions: Telemetry Observation: Pt is unsteady when standing up. Pt would benefit from a RW to keep him from falling. Pt has impaired sensation with LUE and weakness. Interventions ROM Right Upper Extremity AROM: WFL's Left Upper Extremity AROM: Slight limitation Strength Right Upper Extremity: Mild Weakness Left Upper Extremity: Moderate Weakness Comments:: R 4+/5, L 3-/5. Sensation Right Upper Extremity: Intact/Normal Left Upper Extremity: Impaired Balance Sitting Balance Static Sitting Balance: Normal Dynamic Sitting Balance: Normal Standing Balance Static Standing Balance: Poor Dynamic Standing Balance: Poor ADL Skills Self Feeding Self Feeding: Min Assist Grooming Grooming: Min Assist and 1 person assist Comments:: Pt needs modified food. Bathing Bathing UE: Mod Assist and 1 person assist Bathing LE: Mod Assist and 1 person assist Bathing Set-up: Shower Comments:: Pt needs a shower chair due to impaired standing balance. Dressing Dressing UE: Independent Dressing LE: CGA Toilet Management Toilet Hygiene: [facility] Toilet Clothing Management: CGA Functional Mobility Transfers Sit to Stand: CGA Stand to Sit: CGA Stand Pivot Transfers: CGA Ambulation Weight Bearing Status: FWB Assistive Device Used: Rolling Walker Assistance needed with Ambulation: CGA and 1 person assist Comments:: Needs a RW. Safety Awareness Safety Awareness: Poor ZORAIDA INDEX SCORE: . Additional Treatment Performed Time with patient Length of Evaluation: 18 Total treatment time: 30 Activities Patient Interests:: Watching Television Patient Education Patient Education: Education of diagnosis, Home Exercise Program and Education of Plan of Care Teaching Recipient: Patient Teaching Methods: Discussion and Demonstration Assessment Problem List:: Decreased level of function, Requires training/education, Decreased safety/Risk of falls, Weakness and Cognitive status limits abilities Rehab Potential: Fair Further Therapy Indicated?: Yes Evaluation Complexity: HISTORY: Medium, EXAM OF BODY SYSTEMS: Medium and CLINICAL DECISION MAKING: Medium Patient's Goal(s): Pt wants to return home quickly. Short Term Goals Goals GOAL 1: Pt to increase LUE strength to 4+/5. Goal to be met by: 06/18/25 GOAL 2: Pt to increase dyn. std. bal. to Fair to increase safety of ADLS. Goal to be met by: 06/18/25 GOAL 3: Pt to increase grooming at sink level with CGA. Goal to be met by: 06/18/25 GOAL 4: Pt to be SUP for ADLS. Goal to be met by: 06/18/25 Penitentiary Goals GOAL 1: Pt to be I with ADLS. Goal to be met by: 06/19/25 GOAL 2: Pt to increase LUE strength to 5/5. Goal to be met by: 06/19/25 GOAL 3: Pt be I with grooming standing at the sink. Goal to be met by: 06/19/25 Plan Plan of Care: Therapeutic EX, Neuromuscular Re-Educ, Therapeutic Activity and Self-Care/Home Management Frequency of Treatment: 1-2 X day, as tolerated Duration of Treatment: 1 Week Anticipated Discharge Destination: Home Treatment Diagnosis (ICD 10 Codes): Imp. Bal. R26.81, M62.81 Weakness, R20.2 Paresthesia for skin Has the Physician been added for Co-signature?: Yes
== END 2025-06-14 14:30 | disposition left against medical advice (07) | DRG 66 ==
LOC: MEDSURG B 08:40 → ED 08:40 → MEDSURG B 13:40
PROVIDERS: ADMIT Hospitalist; ATTEND Nurse Practitioner